=== PATIENT | male | born 1990 | race Two or more races ===

== ENCOUNTER 2018-02-15 13:06 | Emergency (ER) | payer MEDICAID ==
[~2018-02-15] VITALS: Ht 170.2 cm; Wt 70.0 kg
[2018-02-15] MEDS ORDERED: LIDOCAINE 1%/EPI 1:100,000 10 ML VIAL IJ ONE (14:00)
[2018-02-15] MEDS ORDERED: IBUPROFEN 600MG TABLET PO ONE (14:00)
[2018-02-15 14:39] VITALS: BP 114/78
[2018-02-15] MEDS ORDERED: BACITRACIN ZINC OINT UDPKT TOP ONE (15:45)
== END 2018-02-15 16:00 | disposition home or self-care (01) ==
LOC: ER 13:06
DX: S61.411A Laceration without foreign body of right hand, initial encounter (principal); X78.1XXA Intentional self-harm by knife, initial encounter; Y93.89 Activity, other specified; Y92.89 Other specified places as the place of occurrence of the external cause; Y99.8 Other external cause status
CPT/HCPCS: 12002; 29130; 73130; 99283; J3490